=== PATIENT | female | born 1950 | race Caucasian/White ===

== ENCOUNTER 2024-10-04 15:21 | Emergency (ER) | payer MEDICARE ==
[2024-10-04] MEDS ORDERED: Acetaminophen 500 MG TAB ONE (15:31)
== END 2024-10-04 16:19 | disposition home or self-care (01) ==
LOC: MADERS 15:21
DX: S00.83XA Contusion of other part of head, initial encounter (principal); S70.02XA Contusion of left hip, initial encounter; S40.012A Contusion of left shoulder, initial encounter; E11.9 Type 2 diabetes mellitus without complications; E03.9 Hypothyroidism, unspecified; K21.9 Gastro-esophageal reflux disease without esophagitis; E78.00 Pure hypercholesterolemia, unspecified; Y92.481 Parking lot as the place of occurrence of the external cause; Z79.899 Other long term (current) drug therapy
CPT/HCPCS: 70450